=== PATIENT | female | born 1975 | race Caucasian/White ===

== ENCOUNTER 2016-08-16 00:38 | Day surgery (SDC) | payer OTHER ==
[~2016-08-16 00:38] MED LIST: CALC650T4 PO; LOSA25TA21 PO
[2016-08-16 17:10] VITALS: BP 125/84; PULSE 67; RESP 16; O2SAT 100
[2016-08-16 17:15] VITALS: BP 117/76; PULSE 62; RESP 16; O2SAT 100
[2016-08-16 17:20] VITALS: BP 130/82; PULSE 65; RESP 16; O2SAT 100
[2016-08-16 17:25] VITALS: BP 116/77; PULSE 65; RESP 16; O2SAT 100
[2016-08-16 17:34] VITALS: BP 121/67; PULSE 65; RESP 16; O2SAT 100
[2016-08-16] MEDS ORDERED: SLO64 PO (18:05)
[2016-08-16] MEDS ORDERED: PROP20TA5 PO (18:05)
[2016-08-16] MEDS ORDERED: INUL1TAB3 PO (18:05)
[2016-08-16] MEDS ORDERED: SUMA100T2 PO (18:05)
[2016-08-16] MEDS ORDERED: CHOL100043 PO (18:05)
[2016-08-16] MEDS ORDERED: L. A1CAP13 PO (18:05)
--- NOTE | 2016-08-16 18:11 | NUR ---
Phlebotomy Phlebotomy performed without fail, vss throughout. pt monitored for 30minutes post phlebotomy, denies dizziness and states that she feels normal.
== END 2016-08-16 23:59 | disposition home or self-care (01) ==
LOC: MOCO 00:38
PROVIDERS: ATTEND Internal Medicine Hematology & Oncology
DX: E83.119 Hemochromatosis, unspecified (principal)